=== PATIENT | female | born 1980 | race Caucasian/White ===

== ENCOUNTER → 2024-12-08 | Day surgery (SDC) | payer BC ==
[~2024-12-08] MED LIST: ACETAMINOPHEN 1000 MG/100 ML 100 ML IV ONE; ACETAMINOPHEN/CODEINE 300MG - 30MG TAB ONE; FAMOTIDINE 20 MG/2 ML VIAL IV ONE; FENTANYL CITRATE/PF 100MCG/2 ML INJ ONE; METOCLOPRAMIDE HCL 10 MG/2ML VIAL ONE; MIDAZOLAM HCL 2 MG/2 ML VIAL ONE; ONDANSETRON HCL INJ 2MG/ML 2ML 2 MG/ML VIAL ONE; PRENATAL VITAMINS PO; PROPOFOL IV EMULSION 10 MG/ML 20 ML VIAL ONE; ROCURONIUM BROMIDE 1 ML IV ONE; SEVOFLURANE INHAL SOLN 250 ML PEN BTL ONE; SUGAMMADEX SODIUM 200 MG/2 ML VIAL IV ONE
[2024-12-08] MEDS: LACTATED RINGER'S 1,000 ML ONE (06:20)
[2024-12-08] MEDS: ACETAMINOPHEN/CODEINE 300MG - 30MG TAB PO ONE (11:05)
[2024-12-08 11:30] VITALS: BP 144/82; PULSE 68; RESP 16; O2SAT 99
== END | disposition home or self-care (01) ==
LOC: OR 05:30
PROVIDERS: ATTEND Otolaryngology Otolaryngology/Facial Plastic Surgery
DX: Q18.0 Sinus, fistula and cyst of branchial cleft (principal); I49.9 Cardiac arrhythmia, unspecified; K21.9 Gastro-esophageal reflux disease without esophagitis; Z88.2 Allergy status to sulfonamides; Z87.891 Personal history of nicotine dependence
CPT/HCPCS: 42815; 81025; 88304; 88342; 93005; J0131; J1308; J2250; J2405; J2704; J2765; J3010; J7121